=== PATIENT | male | born 1945 | race Caucasian/White ===

== ENCOUNTER → 2021-02-25 | Outpatient (CLI) | payer MEDICARE | END | disposition home or self-care (01) | LOC: SHCH 07:54 | PROVIDERS: ATTEND Internal Medicine Cardiovascular Disease | DX: Z09 Encounter for follow-up examination after completed treatment for conditions other than malignant neoplasm (principal); I87.2 Venous insufficiency (chronic) (peripheral) | CPT/HCPCS: 93971 ==

== ENCOUNTER → 2021-03-18 | Outpatient (CLI) | payer MEDICARE | END | disposition home or self-care (01) | LOC: SHCH 07:47 | PROVIDERS: ATTEND Internal Medicine Cardiovascular Disease | DX: Z09 Encounter for follow-up examination after completed treatment for conditions other than malignant neoplasm (principal); I87.2 Venous insufficiency (chronic) (peripheral) | CPT/HCPCS: 93971 ==

== ENCOUNTER → 2021-03-25 | Outpatient (CLI) | payer MEDICARE | END | disposition home or self-care (01) | LOC: SHCH 08:37 | PROVIDERS: ATTEND Internal Medicine Cardiovascular Disease | DX: Z09 Encounter for follow-up examination after completed treatment for conditions other than malignant neoplasm (principal); I87.2 Venous insufficiency (chronic) (peripheral) | CPT/HCPCS: 93971 ==

== ENCOUNTER → 2021-08-28 | Outpatient (CLI) | payer MEDICARE | END | disposition home or self-care (01) | LOC: SHCH 08:05 | PROVIDERS: ATTEND Internal Medicine Cardiovascular Disease | DX: I11.9 Hypertensive heart disease without heart failure (principal); E78.5 Hyperlipidemia, unspecified | CPT/HCPCS: 93306; 93356 ==

== ENCOUNTER → 2021-09-02 | Outpatient (CLI) | payer MEDICARE ==
[~2021-09-02] MED LIST: REGADENOSON 0.4 MG/5 ML PF SYG IVP SCH
== END | disposition home or self-care (01) ==
LOC: SHCH 08:27
PROVIDERS: ATTEND Internal Medicine Cardiovascular Disease
DX: R07.9 Chest pain, unspecified (principal); R06.09 Other forms of dyspnea
CPT/HCPCS: 78452; 93017; 96374; A9500 ×2; J2785

== ENCOUNTER → 2021-10-10 | Outpatient (CLI) | payer MEDICARE | END | disposition home or self-care (01) | LOC: RAH 09:57 | PROVIDERS: ATTEND Internal Medicine | DX: M47.26 Other spondylosis with radiculopathy, lumbar region (principal); M48.061 Spinal stenosis, lumbar region without neurogenic claudication; M71.38 Other bursal cyst, other site | CPT/HCPCS: 72148 ==

== ENCOUNTER → 2021-10-15 | Outpatient (CLI) | payer MEDICARE | END | disposition home or self-care (01) | LOC: RAH 10:57 | PROVIDERS: ATTEND Internal Medicine | DX: R06.09 Other forms of dyspnea (principal) | CPT/HCPCS: 71046 ==

== ENCOUNTER 2021-11-25 09:00 | Observation (INO) | payer MEDICARE ==
[~2021-11-25] VITALS: Ht 188 cm; Wt 112.7 kg
[2021-11-25 10:41] LABS: BASOPHILS % (AUTO) 0.5 % (0.0-5.0); EOSINOPHILS % (AUTO) 2.7 % (0.0-8.0); HEMATOCRIT 50.3 % (42-54); LYMPHOCYTES % (AUTO) 20.3 % (21.0-51.0); MEAN CORPUSCULAR HEMOGLOBIN 29.8 pg (27.0-33.0); MEAN CORPUSCULAR HGB CONC 33.4 g/dL (32.0-36.0); MEAN CORPUSCULAR VOLUME 89.2 fL (79-99); MONOCYTES % (AUTO) 8.5 % (3.0-13.0); NEUTROPHILS % (AUTO) 67.9 % (40.0-77.0); PLATELET COUNT (AUTO) 144 K/uL (130-400); RED BLOOD CELL COUNT(AUTO) 5.64 MIL/uL (4.50-6.20); RED CELL DISTRIBUTION WIDTH 13.5 % (11.0-15.5); WHITE BLOOD COUNT (AUTO) 8.1 K/uL (4.8-10.8)
[2021-11-25 10:57] LABS: ALBUMIN 3.7 g/dL (3.5-5.0); BILIRUBIN,TOTAL 0.6 mg/dL (0.2-1.0); CREATININE 1.1 mg/dL (0.5-1.5); TOTAL PROTEIN, SERUM 7.2 g/dL (6.0-8.3)
[2021-11-26 09:54] VITALS: BP 145/81
[2021-11-26] MEDS ORDERED: LOVA40TA2 PO (10:36)
[2021-11-26] MEDS ORDERED: CINNAMON PO (10:36)
[2021-11-26] MEDS ORDERED: OMEP20CA12 PO (10:36)
[2021-11-26] MEDS ORDERED: LOSA1TAB42 PO (10:36)
[2021-11-26] MEDS ORDERED: GABA-529 PO (10:36)
[2021-11-26] MEDS ORDERED: UMEC1DIS IH (10:36)
[2021-11-26] MEDS ORDERED: TRAV2.5D6 OU (10:36)
[2021-11-26] MEDS ORDERED: MULT-1258 PO (10:36)
[2021-11-27] VITALS (36 sets, daily range): BP systolic 111–158; BP diastolic 48–79
[2021-11-27] MEDS: CEFAZOLIN SODIUM 1 GM VIAL IVP SCH ×4 (06:00→21:49)
[2021-11-27] MEDS ORDERED: MORPHINE PF 100MG/10ML AMP IV ONE (06:41)
[2021-11-27] MEDS ORDERED: CEFAZOLIN SODIUM 1 GM VIAL ONE (06:41)
[2021-11-27] MEDS ORDERED: BUPIVACAINE/EPI/PF 0.25% 30ML VIAL IJ ONE (06:41)
[2021-11-27] MEDS ORDERED: THROMBIN-JMI 20000 UNIT KIT TP ONE (06:42)
[2021-11-27] MEDS ORDERED: LIDOCAINE PF 100MG/5ML (2%) SYRINGE 5ML ONE (06:48)
[2021-11-27] MEDS ORDERED: SUCCINYLCHOLINE CHLORIDE 20 MG/ML 10 ML VIAL ONE (06:48)
[2021-11-27] MEDS ORDERED: GLYCOPYRROLATE 1 MG/5 ML SYRINGE ONE (06:50)
[2021-11-27] MEDS ORDERED: PROPOFOL 10 MG/ML 20ML VIAL IV ONE (06:50)
[2021-11-27] MEDS ORDERED: MIDAZOLAM HCL 1 MG/ML 2ML VIAL ONE (06:50)
[2021-11-27] MEDS ORDERED: DEXAMETHASONE SOD PHOSPHATE 10MG/ML 1ML VIAL ONE ×2 (06:50→06:58)
[2021-11-27] MEDS ORDERED: ROCURONIUM 10MG/1ML SYR 10 MG/ML ML ONE (06:52)
[2021-11-27] MEDS ORDERED: ONDANSETRON 4MG INJ ONE (06:52)
[2021-11-27] MEDS ORDERED: NEOSTIGMINE 5MG/5ML SYR IV ONE (06:52)
[2021-11-27] MEDS ORDERED: FENTANYL CITRATE PF 50 MCG/1 ML 2ML VIAL ONE ×2 (06:53→09:08)
[2021-11-27] MEDS ORDERED: LACTATED RINGERS 1000ML 1,000 ML IV ONE (07:29)
[2021-11-27] MEDS ORDERED: MORPHINE 2 MG SYG IVP PRN (10:30)
[2021-11-27] MEDS: DEXAMETHASONE SOD PHOSPHATE 4 MG/ML 1ML VIAL IVP SCH ×3 (10:30→21:48)
[2021-11-27] MEDS ORDERED: GABAPENTIN 100 MG CAPSULE PO PRN (10:30)
[2021-11-27] MEDS: LACTATED RINGERS 1000ML 1,000 ML IV SCH ×2 (10:30→21:44)
[2021-11-27] MEDS ORDERED: PROMETHAZINE HCL 25 MG/ML 1ML AMPULE IM PRN (10:30)
[2021-11-27] MEDS ORDERED: HYDROCODONE/ACETAMINOPHEN 5/325 MG TAB PO PRN (10:30)
[2021-11-27] MEDS ORDERED: 0.9%NACL 10ML VIAL IVP PRN (10:30)
[2021-11-27] MEDS: MULTIVITAMIN WITH MINERALS TABLET PO SCH (11:03)
[2021-11-27] MEDS ORDERED: MEPERIDINE-PF 25 MG/ML SYG ONE (11:04)
[2021-11-27] MEDS: PANTOPRAZOLE 40 MG TAB DR PO SCH (11:04)
[2021-11-27] MEDS: ***HM*** (Umeclidinium Brm/Vilanterol Tr (Anoro Ellipta 62.5-25 Mcg IH SCH (11:06)
[2021-11-27] MEDS: LOSARTAN 100 MG TABLET PO SCH (11:08)
[2021-11-27] MEDS: HYDROCHLOROTHIAZIDE 25 MG TABLET PO SCH (11:09)
[2021-11-27] MEDS ORDERED: TRAVOPROST OU SCH (21:00)
[2021-11-27] MEDS ORDERED: SIMVASTATIN 20 MG TABLET PO SCH (21:00)
[2021-11-28] MEDS: CEFAZOLIN SODIUM 1 GM VIAL IVP SCH (00:44)
[2021-11-28 04:09] VITALS: BP 123/66
[2021-11-28] MEDS: DEXAMETHASONE SOD PHOSPHATE 4 MG/ML 1ML VIAL IVP SCH (04:16)
[2021-11-28] MEDS: PANTOPRAZOLE 40 MG TAB DR PO SCH (06:38)
[2021-11-28 08:07] VITALS: BP 132/71
[2021-11-28] MEDS ORDERED: CINNAMON PO SCH (09:00)
[2021-11-28] MEDS: ***HM*** (Umeclidinium Brm/Vilanterol Tr (Anoro Ellipta 62.5-25 Mcg IH SCH (09:00)
[2021-11-28] MEDS: HYDROCHLOROTHIAZIDE 25 MG TABLET PO SCH (09:05)
[2021-11-28] MEDS: MULTIVITAMIN WITH MINERALS TABLET PO SCH (09:05)
[2021-11-28] MEDS: LOSARTAN 100 MG TABLET PO SCH (09:05)
[2021-11-28 11:26] VITALS: BP 117/68
[2021-11-28] MEDS ORDERED: TAMSULOSIN HCL 0.4 MG CAP.ER.24H PO SCH (12:30)
== END 2021-11-28 15:00 | disposition home or self-care (01) ==
LOC: EDSTATUS 09:00 → DAHIP 11-27 05:49 → 4BH 11-27 14:59 → 3BH 11-27 21:53
PROVIDERS: ADMIT Neurological Surgery; ATTEND Neurological Surgery
DX: M48.061 Spinal stenosis, lumbar region without neurogenic claudication (principal); Z20.822 Contact with and (suspected) exposure to COVID-19; E78.5 Hyperlipidemia, unspecified; K21.9 Gastro-esophageal reflux disease without esophagitis; I10 Essential (primary) hypertension; E66.9 Obesity, unspecified; I87.2 Venous insufficiency (chronic) (peripheral); J44.9 Chronic obstructive pulmonary disease, unspecified; Z79.82 Long term (current) use of aspirin; Z79.899 Other long term (current) drug therapy
CPT/HCPCS: 36415; 63047; 63048; 72020; 80053; 85025; 87635; 96374; 96375; 96376; 97039 ×2; 97116 ×2; 97161; A4215; A4221; A4222; A4223; A4510; A4600; A4663; A6260; G0378 ×26; G0379; J0330; J0690 ×3; J1100 ×5; J2001; J2175; J2250; J2274; J2405; J2704; J2710; J3010 ×2; J3490 ×2; J7120 ×2

== ENCOUNTER → 2021-12-25 | Outpatient (CLI) | payer MEDICARE ==
[~2021-12-25] MED LIST changes: +CINNAMON PO; +GABA-529 PO; +LOSA1TAB42 PO; +LOVA40TA2 PO; +MULT-1258 PO; +OMEP20CA12 PO; -REGADENOSON 0.4 MG/5 ML PF SYG IVP SCH; +TRAV2.5D6 OU; +UMEC1DIS IH
== END | disposition home or self-care (01) ==
LOC: RAH 09:09
PROVIDERS: ATTEND Urology
DX: R10.9 Unspecified abdominal pain (principal); N40.0 Benign prostatic hyperplasia without lower urinary tract symptoms
CPT/HCPCS: 74176

== ENCOUNTER → 2022-05-09 | Outpatient (CLI) | payer MEDICARE | END | disposition home or self-care (01) | LOC: RAH 08:56 | PROVIDERS: ATTEND Urology | DX: N40.0 Benign prostatic hyperplasia without lower urinary tract symptoms (principal); N26.1 Atrophy of kidney (terminal); Z80.42 Family history of malignant neoplasm of prostate | CPT/HCPCS: 76770 ==

== ENCOUNTER → 2023-03-23 | Outpatient (CLI) | payer MEDICARE | END | disposition home or self-care (01) | LOC: RAH 13:55 | PROVIDERS: ATTEND Internal Medicine Nephrology | DX: M25.552 Pain in left hip (principal) | CPT/HCPCS: 73502 ==

== ENCOUNTER → 2023-08-14 | Outpatient (CLI) | payer MEDICARE | END | disposition home or self-care (01) | LOC: RAH 10:48 | PROVIDERS: ATTEND Internal Medicine | DX: K76.0 Fatty (change of) liver, not elsewhere classified (principal); J44.9 Chronic obstructive pulmonary disease, unspecified; R06.02 Shortness of breath; M47.815 Spondylosis without myelopathy or radiculopathy, thoracolumbar region | CPT/HCPCS: 71250 ==

== ENCOUNTER → 2024-07-30 | Outpatient (CLI) | payer MEDICARE | END | disposition home or self-care (01) | LOC: SHCH 13:32 | PROVIDERS: ATTEND Internal Medicine Cardiovascular Disease | DX: I87.1 Compression of vein (principal); I87.2 Venous insufficiency (chronic) (peripheral); I73.9 Peripheral vascular disease, unspecified | CPT/HCPCS: 93925; 93970 ==